=== PATIENT | female | born 1960 | race Hispanic/Latino ===

== ENCOUNTER 2016-10-10 10:12 | Day surgery (SDC) | payer BC ==
--- NOTE | 2016-10-10 12:27 | Anesthesia Consultation ---
Anesthesia Consult and Med Hx Date of service: 10/10/16 - Airway Anesthetic Teeth Evaluation: Good ROM Head & Neck: Inadequate Mental/Hyoid Distance: Adequate Mallampati Class: Class II Intubation Access Assessment: Probably Good - Pulmonary Exam CTA: Yes - Cardiac Exam Cardiac Exam: RRR - Pre-Operative Health Status ASA Pre-Surgery Classification: ASA3 - Pre-Anesthesia Comment Pre-Anesthesia Comments: ponv, rheumatoid arthiritis-chronic neck pain - Cardiovascular System Hx Hypertension: Yes - Central Nervous System CVA: Yes (2015, left leg weakness) - Gastrointestinal Hx Gastroesophageal Reflux Disease: Yes
--- NOTE | 2016-10-10 12:28 | Anesthesia Day of Surgery ---
Anesthesia Day of Surgery - Day of Surgery Patient Examined: Yes Patient H&P Reviewed: Yes Patient is NPO: Yes
[2016-10-10] MEDS ORDERED: TETRACAINE 0.5% OS PRN (13:40)
[2016-10-10] MEDS: MYDRIACYL OS SCH ×3 (13:55→14:05)
[2016-10-10] MEDS: VIGAMOX OS SCH ×3 (13:55→14:05)
[2016-10-10] MEDS: AK-Dilate OS SCH ×3 (13:55→14:05)
[2016-10-10] MEDS ORDERED: NEOFRIN OS SCH (14:00)
[2016-10-10] MEDS ORDERED: VERSED ONE (14:22)
[2016-10-10] MEDS ORDERED: SUBLIMAZE ONE (14:33)
--- NOTE | 2016-10-10 15:04 | Post Anesthesia Evaluation ---
- Post Anesthesia Evaluation Patient Participated: Yes Airway Patent: Yes Stable Respiratory Function: Yes Nausea/Vomiting: No Temp > 96.8F: Yes Pain Manageable: Yes Adequeate Hydration: Yes Anesthesia Complications: No Block Receding Appropriately: Not Applicable Patient on Ventilator: No
--- NOTE | 2016-10-10 15:13 | Operative Report ---
Operative Report Operative Report: PATIENT'S NAME: DATE OF : DATE OF SURGERY: 10/10/2016 PREOPERATIVE DIAGNOSIS: Cataract left eye POSTOPERATIVE DIAGNOSIS: Same OPERATIVE PROCEDURE: Phacoemulsification with intraocular lens implantation, left eye SURGEON: Sherley Montalvo M.D. SENIOR ADMINISTRATIVE SERVICES OFFICER SURGEON: Ramon Lens: D ANESTHESIA: Monitored anesthesia care in combination with topical and intracameral anesthesia because of the established specific risk of reflux, arrhythmias, or anxiety attacks associated with ocular manipulation, as well as the difficulty of the continuity manager to manage such potentially catastrophic events while simultaneously attempting to complete the surgical procedure and was deemed necessary for the patient's safety to have an Fishing Reel Assembler present during the procedure whenever possible. An Fishing Reel Assembler was utilized to regulate the intravenous sedation of the patient so the patient was cooperative yet not asleep in order for the patient to successfully maintain fixation of the eye on the operating light of the microscope. COMPLICATIONS: No surgical complications No blood loss. ALLERGIES: No known drug allergies PROGNOSIS: Excellent INDICATIONS FOR SURGERY: The patient is undergoing surgery in the hopes of eliminating or improving these visual difficulties. PROCEDURE: After arriving at the surgery center, the patient was given topical anesthetic and dilating drops, as noted in the record. The patient was then taken into the operating room and given more anesthetic drops. The eyelids , lashes, and lid margins were scrubbed with Betadine solution, and the patient was draped. The Nurse Fishing Reel Assembler administered IV sedation and monitored the patient during the procedure. The eye was then fixated with a 0.12, and a stab incision was made in the peripheral clear cornea into the anterior chamber. This was made on my left side. Viscoelastic was next used to fill the anterior chamber. The eye was once again fixated with the 0.12 forceps and a keratome was used make an incision in clear cornea peripherally on my right hand side temporally. The capsule forceps were used to open the central anterior capsule and then make a continuous round capsulotomy. Hydrodissection was carried out utilizing a cannula and balanced salt solution to delineate the cortical material from the capsule and the nucleus from the cortical material. The phaco tip was introduced into the eye and used to remove the anterior cortical material in the area of the capsulotomy. Then the phaco tip was buried into the nucleus, and a chopping instrument was introduced into the eye and used to provide countertraction in the nucleus between this instrument and the phaco tip fracturing the nucleus. This procedure was repeated multiple times, providing multiple small segments of the lens, and then the phaco tip was used to remove each of these segments. An I/A tip was then used to remove the remaining cortex. The anterior chamber was refilled with viscoelastic. An one-piece, acrylic intraocular lens was then placed into an inserting cartridge. The tip of the inserting cartridge was introduced into the keratome incision and into the anterior chamber. The implant was gently advanced through the cartridge and into the eye, where it unfolded, and both haptics were placed in the capsular bag, where it centered nicely and appeared to be well fixated. After placement of the intraocular lens, the I~and~A handpiece was placed back into the eye and used to remove the viscoelastic, including viscoelastic that was behind the optic of the intraocular lens. The anterior chamber was then filled with balanced salt solution, and hydration of the wound was used to cause swelling of the wound and more appropriate watertight closure. When the wound was found to be firm, the patient was asked to comment on how bright the light was. If there was no light perception at all or if the light was substantially dimmer than during the rest of the surgery, the amount of fluid in the eye was decompressed to lower the intraocular pressure until the patient could see the bright light again. This was done to avoid any damage or decreased blood flow to the optic nerve. MEDICATIONS APPLIED AT END OF SURGERY: One drop of Pred Forte and Vigamox The patient was given a shield to wear at night and was instructed not to rub or push on the eye. DISCHARGE SUMMARY: The patient was released in stable condition. The patient and those with the patient were given a written sheet of postoperative instructions and counseling on any abnormal laboratory studies. The patient is to see us tomorrow for follow-up in the office and is to call immediately for any difficulties. Sherley Montalvo M.D. Date
--- NOTE | 2016-10-10 15:14 | Short Stay Summary ---
Short Stay Documentation Date of service: 10/10/16 - History H&P: obtained from office - Allergies and Medications Current Medications: Allergies No Known Allergies Allergy (Unverified 10/10/16 13:37) Home Medications Medication Instructions Recorded Confirmed Last Taken Type Aspirin [Adult Low Dose Aspirin EC] 81 mg PO 10/10/16 10/09/16 History Diclofenac Sodium [Diclofenac 75 mg PO BID 10/10/16 10/10/16 Unknown History Sodium] Duloxetine HCl [Cymbalta] 30 mg PO DAILY 10/10/16 10/10/16 10/09/16 History Duloxetine HCl [Cymbalta] 60 mg PO DAILY 10/10/16 10/10/16 10/09/16 History Folic Acid 1 mg PO 10/10/16 10/09/16 History HYDROcodone/APAP 7.5-325 7.5 mg PO BID 10/10/16 10/10/16 10/09/16 History Magnesium Oxide [Magnesium] 500 mg PO 10/10/16 10/09/16 History Methotrexate Sodium [Methotrexate] 2.5 mg PO 10/10/16 10/05/16 History Potassium 10 meq PO BID 10/10/16 10/10/16 10/09/16 History Triamterene/Hydrochlorothiazid 37.5 each PO 10/10/16 10/10/16 History [Triamterene-Hctz 50-25 mg Cap] Zolpidem Tartrate [Zolpidem 10 mg PO DAILY 10/10/16 10/10/16 10/09/16 History Tartrate] Active Medications Moxifloxacin HCl (Vigamox) 1 drops OS Q5MIN [facility] Stop: 10/10/16 23:59 Last Admin: 10/10/16 14:05 Dose: 1 drops Phenylephrine HCl (Ak-Dilate) 1 drops OS Q5MIN [facility] Stop: 10/10/16 23:59 Last Admin: 10/10/16 14:05 Dose: 1 drops Prednisolone Acetate (Pred Forte 1%) 1 drops OS QID [facility] Tetracaine HCl (Tetracaine 0.5%) 1 drops OS Q5M PRN PRN Reason: Analgesia Stop: 10/10/16 23:59 Last Admin: 10/10/16 13:55 Dose: 1 drops Tropicamide (Mydriacyl) 1 drops OS Q5MIN [facility] Stop: 10/10/16 23:59 Last Admin: 10/10/16 14:05 Dose: 1 drops - Brief post op/procedure progress note Date of procedure: 10/10/16 Pre-op diagnosis: cataract left eye Post-op diagnosis: same Procedure: Phacoemulsification with intraocular lens insertion left eye Anesthesia: MAC Surgeon: IMER BLUM Estimated blood loss: none Pathology: none Condition: stable - Disposition Condition at discharge: Good Disposition: DISCHARGED TO HOME OR SELFCARE - Discharge Diagnoses (1) Cataract Status: Resolved Qualifiers: Cataract type: age-related Age-related cataract type: posterior subcapsular polar Infantile/juvenile cataract type: I Traumatic cataract type: T Complicated cataract type: C Secondary cataract type: S Laterality : left Qualified Code(s): H25.042 - Posterior subcapsular polar age-related cataract, left eye
[2016-10-10] MEDS: PRED FORTE 1% OS SCH ×2 (15:27→15:42)
[2016-10-10 16:29] VITALS: BP 156/73
== END 2016-10-10 15:55 | disposition home or self-care (01) ==
LOC: OR 10:12
DX: H26.9 Unspecified cataract (principal); M19.90 Unspecified osteoarthritis, unspecified site; I10 Essential (primary) hypertension; K21.9 Gastro-esophageal reflux disease without esophagitis; Z86.73 Personal history of transient ischemic attack (TIA), and cerebral infarction without residual deficits; Z79.899 Other long term (current) drug therapy
CPT/HCPCS: 66984; J2250; J3010; V2632

== ENCOUNTER 2016-11-07 07:05 | Day surgery (SDC) | payer BC ==
[~2016-11-07 07:05] MED LIST: TETRACAINE 0.5% OD PRN
--- NOTE | 2016-11-07 09:06 | Anesthesia Day of Surgery ---
Anesthesia Day of Surgery - Day of Surgery Patient Examined: Yes Patient H&P Reviewed: Yes Patient is NPO: Yes
--- NOTE | 2016-11-07 09:10 | Anesthesia Consultation ---
Anesthesia Consult and Med Hx Date of service: 11/07/16 - Airway Anesthetic Teeth Evaluation: Good ROM Head & Neck: Adequate Mental/Hyoid Distance: Adequate Mallampati Class: Class II Intubation Access Assessment: Probably Good - Pulmonary Exam CTA: Yes - Cardiac Exam Cardiac Exam: RRR - Pre-Operative Health Status ASA Pre-Surgery Classification: ASA3 Proposed Anesthetic Plan: MAC - Pulmonary Hx Smoking: No Hx Asthma: No Hx Sleep Apnea: No - Cardiovascular System Hx Hypertension: Yes - Central Nervous System Hx Neuromuscular Disorder: Yes (rheumatoid arthritis) CVA: Yes (2015, left leg weakness) Hx Psychiatric Problems: No - Gastrointestinal Hx Gastroesophageal Reflux Disease: Yes - Endocrine Hx Renal Disease: No Hx End Stage Renal Disease: No Hx Liver Disease: No Hx Thyroid Disease: No - Other Systems Hx Cancer: No
[2016-11-07] MEDS: AK-Dilate OD SCH ×3 (10:20→10:30)
[2016-11-07] MEDS: VIGAMOX OD SCH ×3 (10:20→10:30)
[2016-11-07] MEDS: MYDRIACYL OD SCH ×3 (10:20→10:30)
[2016-11-07] MEDS ORDERED: NORCO 5/325 PO PRN (10:30)
[2016-11-07] MEDS ORDERED: VERSED ONE (11:01)
[2016-11-07] MEDS ORDERED: SUBLIMAZE ONE (11:01)
--- NOTE | 2016-11-07 11:50 | Operative Report ---
Operative Report Operative Report: PATIENT'S NAME: DATE OF : DATE OF SURGERY: 11/07/2016 PREOPERATIVE DIAGNOSIS: Cataract right eye POSTOPERATIVE DIAGNOSIS: Same OPERATIVE PROCEDURE: Phacoemulsification with intraocular lens implantation, right eye SURGEON: Sherley Montalvo M.D. BRAKE SHOE REBUILDER SURGEON: Ramon Lens: [email or web address] 18.0 D ANESTHESIA: Monitored anesthesia care in combination with topical and intracameral anesthesia because of the established specific risk of reflux, arrhythmias, or anxiety attacks associated with ocular manipulation, as well as the difficulty of the project management professor to manage such potentially catastrophic events while simultaneously attempting to complete the surgical procedure and was deemed necessary for the patient's safety to have an Com Writer present during the procedure whenever possible. An Com Writer was utilized to regulate the intravenous sedation of the patient so the patient was cooperative yet not asleep in order for the patient to successfully maintain fixation of the eye on the operating light of the microscope. COMPLICATIONS: No surgical complications No blood loss. ALLERGIES: No known drug allergies PROGNOSIS: Excellent INDICATIONS FOR SURGERY: The patient is undergoing surgery in the hopes of eliminating or improving these visual difficulties. PROCEDURE: After arriving at the surgery center, the patient was given topical anesthetic and dilating drops, as noted in the record. The patient was then taken into the operating room and given more anesthetic drops. The eyelids , lashes, and lid margins were scrubbed with Betadine solution, and the patient was draped. The Nurse Com Writer administered IV sedation and monitored the patient during the procedure. The eye was then fixated with a 0.12, and a stab incision was made in the peripheral clear cornea into the anterior chamber. This was made on my left side. Viscoelastic was next used to fill the anterior chamber. The eye was once again fixated with the 0.12 forceps and a keratome was used make an incision in clear cornea peripherally on my right hand side temporally. The capsule forceps were used to open the central anterior capsule and then make a continuous round capsulotomy. Hydrodissection was carried out utilizing a cannula and balanced salt solution to delineate the cortical material from the capsule and the nucleus from the cortical material. The phaco tip was introduced into the eye and used to remove the anterior cortical material in the area of the capsulotomy. Then the phaco tip was buried into the nucleus, and a chopping instrument was introduced into the eye and used to provide countertraction in the nucleus between this instrument and the phaco tip fracturing the nucleus. This procedure was repeated multiple times, providing multiple small segments of the lens, and then the phaco tip was used to remove each of these segments. An I/A tip was then used to remove the remaining cortex. The anterior chamber was refilled with viscoelastic. An one-piece, acrylic intraocular lens was then placed into an inserting cartridge. The tip of the inserting cartridge was introduced into the keratome incision and into the anterior chamber. The implant was gently advanced through the cartridge and into the eye, where it unfolded, and both haptics were placed in the capsular bag, where it centered nicely and appeared to be well fixated. After placement of the intraocular lens, the I~and~A handpiece was placed back into the eye and used to remove the viscoelastic, including viscoelastic that was behind the optic of the intraocular lens. The anterior chamber was then filled with balanced salt solution, and hydration of the wound was used to cause swelling of the wound and more appropriate watertight closure. When the wound was found to be firm, the patient was asked to comment on how bright the light was. If there was no light perception at all or if the light was substantially dimmer than during the rest of the surgery, the amount of fluid in the eye was decompressed to lower the intraocular pressure until the patient could see the bright light again. This was done to avoid any damage or decreased blood flow to the optic nerve. MEDICATIONS APPLIED AT END OF SURGERY: One drop of Pred Forte and Vigamox The patient was given a shield to wear at night and was instructed not to rub or push on the eye. DISCHARGE SUMMARY: The patient was released in stable condition. The patient and those with the patient were given a written sheet of postoperative instructions and counseling on any abnormal laboratory studies. The patient is to see us tomorrow for follow-up in the office and is to call immediately for any difficulties. Sherley Montalvo M.D. Date
--- NOTE | 2016-11-07 11:51 | Short Stay Summary ---
Short Stay Documentation Date of service: 11/07/16 - History H&P: obtained from office - Allergies and Medications Current Medications: Allergies No Known Allergies Allergy (Unverified 11/01/16 08:46) Home Medications Medication Instructions Recorded Confirmed Last Taken Type Aspirin [Adult Low Dose Aspirin EC] 81 mg PO DAILY 10/10/16 11/01/16 11/06/16 History Diclofenac Sodium [Diclofenac 75 mg PO BID 10/10/16 11/01/16 11/06/16 History Sodium] Duloxetine HCl [Cymbalta] 30 mg PO DAILY 10/10/16 11/01/16 11/06/16 History Duloxetine HCl [Cymbalta] 60 mg PO DAILY 10/10/16 11/01/16 11/06/16 History Folic Acid 1 mg PO DAILY 10/10/16 11/01/16 11/06/16 History HYDROcodone/APAP 7.5-325 7.5 mg PO BID 10/10/16 11/01/16 11/06/16 History Magnesium Oxide [Magnesium] 500 mg PO DAILY 10/10/16 11/01/16 11/06/16 History Methotrexate Sodium [Methotrexate] 2.5 mg PO DAILY 10/10/16 11/07/16 2 Weeks Ago History Potassium 10 meq PO BID 10/10/16 11/01/16 11/06/16 History Triamterene/Hydrochlorothiazid 37.5 each PO DAILY 10/10/16 11/01/16 11/07/16 05: 00 History [Triamterene-Hctz 50-25 mg Cap] Zolpidem Tartrate [Zolpidem 10 mg PO DAILY 10/10/16 11/01/16 11/06/16 History Tartrate] Active Medications Acetaminophen/Hydrocodone Bitart ([place] 5/325) 1 each PO PRN PRN PRN Reason: Pain, Moderate (4-6) Last Admin: 11/07/16 10:17 Dose: 1 each Moxifloxacin HCl (Vigamox) 1 drops OD Q5MIN [facility] Stop: 11/09/16 06:01 Last Admin: 11/07/16 10:30 Dose: 1 drops Phenylephrine HCl (Ak-Dilate) 1 drops OD Q5MIN [facility] Stop: 11/07/16 18:00 Last Admin: 11/07/16 10:30 Dose: 1 drops Prednisolone Acetate (Pred Forte 1%) 1 drops OD QID [facility] Tetracaine HCl (Tetracaine 0.5%) 1 drops OD Q5M PRN PRN Reason: Analgesia Last Admin: 11/07/16 10:20 Dose: 1 drops Tropicamide (Mydriacyl) 1 drops OD Q5MIN [facility] Stop: 11/09/16 06:01 Last Admin: 11/07/16 10:30 Dose: 1 drops - Brief post op/procedure progress note Date of procedure: 11/07/16 Pre-op diagnosis: cataract right eye Post-op diagnosis: same Procedure: Phacoemulsification with intraocular lens insertion right eye Anesthesia: MAC Surgeon: IMER BLUM Estimated blood loss: none Pathology: none Condition: stable - Disposition Condition at discharge: Good Disposition: DC-01 TO HOME OR SELFCARE - Discharge Diagnoses (1) Cataract Status: Resolved Qualifiers: Cataract type: age-related Age-related cataract type: nuclear Infantile/ juvenile cataract type: I Traumatic cataract type: T Complicated cataract type: C Secondary cataract type: S Laterality: right Qualified Code(s): H25.11 - Age-related nuclear cataract, right eye Short Stay Discharge Plan Follow up with: PRIMARY CARE, [Primary Care Provider] - 7 Days
[2016-11-07] MEDS ORDERED: PRED FORTE 1% OD SCH (12:10)
[2016-11-07 12:20] VITALS: BP 185/94
== END 2016-11-07 12:45 | disposition home or self-care (01) ==
LOC: OR 07:05
DX: H26.9 Unspecified cataract (principal); I10 Essential (primary) hypertension; M06.9 Rheumatoid arthritis, unspecified; K21.9 Gastro-esophageal reflux disease without esophagitis; Z86.73 Personal history of transient ischemic attack (TIA), and cerebral infarction without residual deficits; Z79.82 Long term (current) use of aspirin; Z79.899 Other long term (current) drug therapy
CPT/HCPCS: 66984; J2250; J3010; V2632